=== PATIENT | female | born 1985 | race African-American/Black ===

== ENCOUNTER 2022-12-13 17:46 | Emergency (ER) | payer SELFPAY ==
[~2022-12-13] VITALS: Ht 160 cm; Wt 52.0 kg
[2022-12-13 17:49] VITALS: BP 105/46
== END 2022-12-13 21:45 | disposition left against medical advice (07) ==
LOC: ER 17:46
DX: Z53.21 Procedure and treatment not carried out due to patient leaving prior to being seen by health care provider (principal)
CPT/HCPCS: 99281